=== PATIENT | male | born 1985 | race American Indian/Alaskan Native ===

== ENCOUNTER 2016-11-12 05:44 | Day surgery (SDC) | payer BC ==
[~2016-11-12 05:44] MED LIST: NACL 0.9% 1000 ML 1,000 ML IV SCH
[2016-11-12] MEDS ORDERED: VERSED IV NR ×2 (06:00→07:00)
[2016-11-12] MEDS ORDERED: ANCEF/STERILE WATER 2 GM/20 ML 2 GM/20 ML SYRINGE IV SCH (06:00)
[2016-11-12] MEDS ORDERED: PEPCID PO NR (06:00)
[2016-11-12] MEDS ORDERED: NACL BACTERIOSTATIC INFILTRATI ONE (06:39)
--- NOTE | 2016-11-12 06:54 | Anesthesia Consultation ---
Anesthesia Consult and Med Hx Date of service: 11/12/16 - Airway Anesthetic Teeth Evaluation: Good ROM Head & Neck: Adequate Mental/Hyoid Distance: Adequate Mallampati Class: Class II Intubation Access Assessment: Probably Good - Pulmonary Exam CTA: Yes - Cardiac Exam Cardiac Exam: RRR - Pre-Operative Health Status ASA Pre-Surgery Classification: ASA2 Proposed Anesthetic Plan: General - Pulmonary Hx Smoking: Yes (1/2PPD 10YRS) Hx Asthma: No Hx Sleep Apnea: No - Cardiovascular System Hx Hypertension: No Hx Coronary Artery Disease: No - Central Nervous System Hx Seizures: No CVA: No - Endocrine Hx Renal Disease: No Hx End Stage Renal Disease: No Hx Non-Insulin Dependent Diabetes: No Hx Hypothyroidism: No Hx Hyperthyroidism: No - Other Systems Hx Alcohol Use: Yes (SPECIAL OCCASIONAL) Hx Obesity: No - Additional Comments Anesthesia Medical History Comments: prior wisdom tooth removal with no problems
--- NOTE | 2016-11-12 06:54 | Anesthesia Day of Surgery ---
Anesthesia Day of Surgery - Day of Surgery Patient Examined: Yes Patient H&P Reviewed: Yes Patient is NPO: Yes
[2016-11-12] MEDS ORDERED: DIPRIVAN 10 MG/ML IV ONE (07:16)
[2016-11-12] MEDS ORDERED: ZEMURON IV ONE (07:17)
[2016-11-12] MEDS ORDERED: XYLOCAINE MPF 2% ONE (07:17)
[2016-11-12] MEDS ORDERED: DILAUDID ONE (07:17)
[2016-11-12] MEDS ORDERED: MARCAINE-EPI 0.5%-1:200,000 INFILTRATI ONE ×2 (07:18→08:00)
--- NOTE | 2016-11-12 07:45 | Admit Criteria Form ---
Admission Criteria Documentation: AMBULATORY SURGERY EXCEPTION CRITERIA Ambulatory Surgery Exception Criteria ( Place 'X' for any and all applicable criteria): Surgery or procedure performed on ambulatory basis may require inpatient stay for[A] ANY ONE of the following(1)(2)(3)(4)(5)(6)(7)(8)(9): [X] I. A preoperative situation, condition, or finding that warrants inpatient stay as indicated by ANY ONE of the following: [] a) Inpatient care needed because of severity of a disease or condition rather than the surgery (eg, severe cardiac or respiratory disease, severe infection) (15) (16 ) (17) (18) [] b) Emergent procedure (eg, angioplasty for acute ischemia)(19) [X] c) Complex surgical approach or situation as indicated by ANY ONE of the following(3): [X] i) Open approach needed instead of usual endoscopic, transcatheter, or other less invasive procedure [] ii) Difficult approach because of previous operation [] iii) Airway monitoring required after open neck procedures(20)(21) [] iv) Large mass requiring unusually extensive dissection [] v) Additional complicating feature requiring inpatient care (eg, drain management)(22(23): [] d) Major surgery in a pt with high anesthetic risk as indicated by ANY ONE of the following (2)(3)(5)(7)(8): [] i) ASA risk class III or higher (severe systemic disease impairing function) [D] [] ii) Advanced age (eg, older than 85 years)(14)(24) [] iii) Symptomatic heart failure(25) [] iv) Symptomatic asthma or COPD(8)(21) [] v) Morbid obesity with hemodynamic or respiratory problems(20)( 21)(26)(27) [] vi) Obstructive sleep apnea(20)(21) [] vii) Former premature infants who are younger than 60 weeks [] viii) High risk for severe postoperative abnormalities (eg, severe postoperative hypocalcemia after parathyroidectomy for severe hyperparathyroidism)(27)( 28) [] ix) Unstable angina(25) [] e) Drug-related risk requiring inpatient stay as indicated by ANY ONE of the following(5)(10)(14)(32)(33) [] i) Procedure requires discontinuing drugs or other therapy (eg , antiarrhythmic medication, antiseizure medication), which necessitates inpatient observation or treatment.(18)(31) [] ii) Major surgery and high risk drug use as indicated by ANY ONE of the following: [] 1) Active abuse of cocaine or similar drug [] 2) Monoamine oxidase inhibitor use [] 3) Other drug identified as posing risk [] f) Inadequate outpatient care situation as indicated by ANY ONE of the following(5)(10)(14)(32)(33) [] i) Patient lives remote from medical facility and procedure has urgent complication potential, and temporary nearby residence cannot be arranged [] ii) Patient will have postprocedure incapacitation and inadequate assistance at home, or alternative level of care cannot be arranged. [] iii) Patient will have long general anesthesia or procedure side effect resolution time, and competent person to stay with patient on first postoperative night at home or alternative level of care cannot be arranged. []iv) Other inadequate outpatient situation that cannot be handled by other means [] II. A perioperative event, condition, or finding that warrants inpatient stay as indicated by ANY ONE of the following (1)(2)(3): [] a) Inadequate physiologic recovery: cardiovascular, respiratory, or hemodynamic status not normal or near preoperative baseline(18) [] b) Hemodynamic instability [] c) Patient not alert with near normal or baseline mental status [] d) Temperature not normal or as expected and not appropriate for outpatient treatment of condition [] e) Ambulatory or appropriate activity level status not yet achieved post procedure [E](34)(35)(36) [] f) Operative site not appropriate (eg, unexpected or excessive drainage or bleeding) [] g) Postoperative effects not resolved or adequately managed (eg, significant pain or vomiting not appropriate for outpatient or next level of care)(10)(12) [] h) Complicating features requiring inpatient care as indicated by ANY ONE of the following(37): [] i) Severe complications of procedure (eg, bowel injury, airway compromise, vascular injury,severe hemorrhage) [] ii) Extensive (eg, dissection far beyond usual scope of procedure ) or prolonged (eg, 120 minutes beyond usual) surgery needed requiring inpatient postoperative care [] iii) Conversion to an open or complex procedure that requires inpatient care (eg, open vs laparoscopic cholecystectomy, abdominal vs vaginal hysterectomy)(38) [] iv) Comorbid condition or test result identified during or post procedure that requires inpatient care (7) [] v) Malignant hyperthermia(30) [] vi) Other complicating feature requiring inpatient care(22)(23) Inpatient stay may be needed until ALL of the following are present (1)(2)(3)(4) (5)(6)(10)(14)(33)(40): []a) Physiologic recovery: cardiovascular, respiratory, and hemodynamic status normal or near preoperative baseline []b) Hemodynamic stability []c) Patient alert, with near normal or baseline mental status []d) Temperature appropriate: patient afebrile or temperature appropriate for outpt treatment of condition []e) Activity level appropriate: ambulatory or appropriate activity level post procedure []f) Operative site appropriate as indicated by ALL of the following: []i) Site dry or with expected drainage []ii) Any blood noted is as expected for procedure. []g) Postoperative effects resolved or managed as indicated by ALL of the following: []i) Pain management appropriate for outpatient (or next level of) care(10) []ii) Minimal nausea and vomiting: if present, successfully treated with oral medication(12) []iii) Headache, dizziness, or drowsiness (if present) are mild. []h) Voiding status acceptable as indicated by ANY ONE of the following: []i) Voiding spontaneously []ii) No voiding but instructions given for follow-up in 6 to 8 hours []iii) Urinary catheter in place, and instructions given for follow-up []i) Complicating features requiring inpatient care manageable at a lower level of care(37) []j) Comorbid conditions manageable at a lower level of care(37) The original [facility] content created by [facility] has been revised. The portions of the content which have been revised are identified through the use of italic text or in bold, and [facility] [email or web address] has neither reviewed nor approved the modified material. All other unmodified content is copyright [facility]. Please see references footnoted in the original [facility] edition 2016 Admission Criteria Met: Yes
[2016-11-12] MEDS ORDERED: NACL 0.9% IR ONE (08:00)
[2016-11-12] MEDS ORDERED: DECADRON ONE (08:05)
[2016-11-12] MEDS ORDERED: TORADOL ONE (08:05)
[2016-11-12] MEDS ORDERED: ROBINUL ONE ×2 (08:06→08:45)
[2016-11-12] MEDS ORDERED: ZOFRAN ONE (08:06)
[2016-11-12] MEDS ORDERED: NEOSTIGMINE ONE (08:06)
[2016-11-12] MEDS ORDERED: NEO SYNEPHRINE ONE (08:15)
[2016-11-12] MEDS ORDERED: NACL 0.9% 100 ML ONE (08:17)
[2016-11-12] MEDS ORDERED: ZOFRAN IV PRN (08:27)
[2016-11-12] MEDS ORDERED: NORCO 5/325 PO PRN (08:27)
--- NOTE | 2016-11-12 09:05 | Discharge Summary ---
Short Stay Discharge Plan Activity: other (observe x 4 hrs. december d/c when stable if able to void. cl liq today. solid diet in am. surfak q am x 3. ice pack R groin x 6 hrs. scrotal support x 3 days. no lifting over 5 lbs x 3 wks. aleve 1 po q 6-8 hrs for breakthrough pain ) Weight Bearing Status: Non-Weight Bearing Diet: other Wound: keep clean and dry (x 5 days) Follow up with: CAPRICE PIPER MD [Staff Physician] - 7 Days
[2016-11-12] MEDS: DILAUDID IV PRN ×2 (09:28→09:38)
--- NOTE | 2016-11-12 09:44 | Operative Report ---
PREOPERATIVE DIAGNOSIS: Right inguinal hernia. POSTOPERATIVE DIAGNOSIS: Right inguinal hernia. PROCEDURE: Open right inguinal hernia repair with mesh. SURGEON: Moo Rivero MD. ANESTHESIA: General. ESTIMATED BLOOD LOSS: Minimal. DRAINS: None. COMPLICATIONS: None. DESCRIPTION OF PROCEDURE: The patient was taken up to the operating room, prepped and draped in the usual sterile fashion. Incision was made using his landmarks anterosuperior iliac spine and the pubic tubercle. This incision was carried down to the external oblique fascia. External oblique fascia was transected down to the external ____ ring. The cord was then identified and isolated with a Bethel drain. Indirect hernia sac was identified. The sac was dissected free from the surrounding cord structures and high ligation performed with 2-0 silk tie. Area was then irrigated and dried. Checked for hemostasis and noted to be dry. A keyhole Marlex mesh was then placed to reconstruct the inguinal canal floor. The mesh was tacked to Won's ligament and then secured medially to the transversalis fascia and laterally to the iliopubic tract with Surgilon suture. Once again, area was irrigated copiously and dried. Checked for hemostasis and noted to be dry. Cord structures were once again inspected and noted to be intact. Ilioinguinal nerve was also noted to be intact. The external oblique fascia was then closed over the cord with running 4-0 Vicryl. Subcutaneous tissues irrigated and skin closed with gale. 0.5% Marcaine with epinephrine was infiltrated over the fascia, subcutaneous, and skin for postoperative pain relief. Ilioinguinal nerve block was also performed. The patient tolerated the procedure well and left the OR in stable condition. JOB# [id number] FERMIN/KEATON
--- NOTE | 2016-11-12 09:47 | Post Anesthesia Evaluation ---
- Post Anesthesia Evaluation Patient Participated: Yes Airway Patent: Yes Stable Respiratory Function: Yes Temp > 96.8F: Yes Pain Manageable: Yes Adequeate Hydration: Yes Anesthesia Complications: No Block Receding Appropriately: Not Applicable
[2016-11-12 13:46] VITALS: BP 109/72
== END 2016-11-12 13:10 | disposition home or self-care (01) ==
LOC: OR 05:44
PROVIDERS: ATTEND Surgery
DX: K40.90 Unilateral inguinal hernia, without obstruction or gangrene, not specified as recurrent (principal); F17.210 Nicotine dependence, cigarettes, uncomplicated; Z72.89 Other problems related to lifestyle
CPT/HCPCS: 49505; 88302; C1781; J0690; J1100; J1170; J1885; J2250; J2370; J2405; J2704; J2710; J7030